=== PATIENT | male | born 1965 | race African-American/Black ===

== ENCOUNTER 2019-10-10 08:14 | Emergency (ER) | payer OTHER ==
[~2019-10-10] VITALS: Ht 182.9 cm; Wt 117.9 kg
[~2019-10-10 08:14] MED LIST changes: -LIDOCAINE 1%/EPI 1:100,000 20 ML VIAL. INJ ONE
--- NOTE | 2019-10-10 09:03 | EKG ---
[facility] [address] [place] [address] Test Date: 2019-10-10 Test Time: 08:29:34 Pat Name: BRENT TELLEZ Department: Room: Gender: M Senior Interaction Designer: : 1965 Requested By: STEFANIE HUDDLESTON Order Number: [id number] Reading MD: Measurements Intervals [place] Rate: 97 P: 61 WV: 120 QRS: 10 QRSD: 112 T: 24 QT: 360 QTc: 461 Interpretive Statements SINUS RHYTHM VENTRICULAR PREMATURE COMPLEX(ES), BIGEMINY ATRIAL PREMATURE COMPLEX(ES) ABNORMAL ECG No previous ECG available for comparison
[2019-10-10 09:17] LABS: BARBITURATES NEG (NEG); BENZODIAZEPINES NEG (NEG); CANNABINOIDS NEG (NEG); COCAINE NEG (NEG); METHADONE NEG (NEG); OPIATES NEG (NEG); PHENCYCLIDINE NEG (NEG)
[2019-10-10 09:18] LABS: AMPHETAMINE/METHAMPHETAMINE NEG (NEG)
--- NOTE | 2019-10-10 09:18 | RAD ---
Examination: PORTABLE CHEST 1V History: Dizziness Comparison/Correlation: None Findings: Portable upright frontal view of the chest was obtained. Heart size and pulmonary vasculature are normal. Calcified granulomas involve the lower lung perales in particular. No dense consolidation. Subtle right upper lung field infiltrate or scarring is questioned but this may be artifactual due to overlying anatomic structures. No evidence of pleural effusion or pneumothorax. Bony structures are unremarkable. Impression: No definite infiltrate. Follow-up two-view chest x-ray exam for more definitive assessment should be considered. Electronically signed by: Chet Matthews MD (10/10/2019 9:15 AM) [facility]
[2019-10-10 09:30] LABS: BASO # 0.1 x10^3/uL (0.0-0.2); BASO % 1 % (0-3); EOS # 0.2 x10^3/uL (0.0-0.7); EOS % 2 % (0-3); HEMATOCRIT 47.3 % (39.0-53.0); HEMOGLOBIN 16.2 g/dL (13.0-17.5); LYMPH # 2.6 x10^3/uL (1.0-4.8); LYMPH % 34 % (24-48); MEAN CORPUSCULAR HEMOGLOBIN 29 pg (25-35); MEAN CORPUSCULAR HGB CONC 34 g/dL (31-37); MEAN CORPUSCULAR VOLUME 86 fL (79-100); MONO # 0.5 x10^3/uL (0.0-1.1); MONO % 7 % (0-9); NEUT # 4.2 x10^3/uL (1.8-7.7); NEUT % 56 % (31-73); PLATELET COUNT 332 x10^3/uL (140-400); RED CELL DISTRIBUTION WIDTH 15.2 % (11.5-14.5); WHITE BLOOD COUNT 7.5 x10^3/uL (4.0-11.0)
--- NOTE | 2019-10-10 09:38 | RAD ---
CT HEAD WITHOUT CONTRAST 10/10/2019 8:51 AM Indication: Dizziness Comparison: MRI of the brain March 04, 2016 Procedure: Multidetector CT imaging of the head was performed without the administration of contrast. Findings: No evidence of acute intracranial hemorrhage is identified. Calcification along the falx is similar to comparison study. No acute mass effect or midline shift is identified. No CT evidence of subacute territorial infarct is identified. Note that CT is limited for evaluation acute ischemia. Consider MRI there is continued clinical concern for acute ischemia. Mildly prominent extra-axial fluid in the frontal regions is similar to comparison study. No new, abnormal extra-axial fluid collections are identified. Ventricles and basilar cisterns have a unremarkable configuration. Bony calvarium is intact. Impression: No evidence of acute intracranial abnormality or acute change from prior study CT DOSING PQRS STATEMENT: One or more of the following individualized dose reduction techniques were utilized for this examination: 1. Automated exposure control 2. Adjustment of the mA and/or kV according to patient size 3. Use of iterative reconstruction technique Electronically signed by: Ha Howard MD (10/10/2019 9:35 AM) [facility]
[2019-10-10 09:39] LABS: CALCIUM 9.6 mg/dL (8.5-10.1); CREATININE 0.8 mg/dL (0.7-1.3); GFR 122.8; POTASSIUM 4.1 mmol/L (3.5-5.1)
[2019-10-10 09:44] LABS: ALBUMIN 4.1 g/dL (3.4-5.0); TOTAL BILIRUBIN 0.2 mg/dL (0.2-1.0); TOTAL PROTEIN 8.2 g/dL (6.4-8.2)
[2019-10-10 11:04] VITALS: BP 163/96
--- NOTE | 2019-10-10 11:11 | PHYS DOC ---
Past Medical History Past Medical History: No Pertinent History Past Surgical History: Other Additional Past Surgical Histo: PELVIC, HEMMORRHOID Alcohol Use: Occasionally Drug Use: None Adult General Chief Complaint Chief Complaint: DIZZY/LIGHT HEADED [facility] HPI Patient is a 54 year old male who presents with complaining of dizziness. Patient states he has had episodes of dizziness for the last 2 or 3 months that usually happens with change of position and standing up and lasts for a few seconds. Patient states he was seen by his primary care physician and treated with medications that helping for his dizziness. Patient states he had a scheduled outpatient surgery for right arm lipoma resection and did not take his medication and felt dizzy at his arrival to the hospital. Outpatient surgery reported that patient had heart rate of 50 and sent patient for evaluation to ER. Patient denies chest pain, headache, palpitation, dizziness nausea and vomiting, change of hearing, focal neuro deficit, urinary symptom. Review of Systems Review of Systems Constitutional: Denies fever or chills [] Eyes: Denies change in visual acuity, redness, or eye pain [] HENT: Denies nasal congestion or sore throat [] Respiratory: Denies cough or shortness of breath [] Cardiovascular: No additional information not addressed in HPI [] GI: Denies abdominal pain, nausea, vomiting, bloody stools or diarrhea [] : Denies dysuria or hematuria [] Musculoskeletal: Denies back pain or joint pain [] Integument: Denies rash, reports skin lesions [] Neurologic: Denies headache, focal weakness or sensory changes, reports dizziness[] Endocrine: Denies polyuria or polydipsia [] All other systems were reviewed and found to be within normal limits, except as documented in this note. Allergies Allergies Allergies Coded Allergies Type Severity Reaction Last Updated Verified No Known Drug Allergies 10/10/19 No Physical Exam Physical Exam Constitutional: Well developed, well nourished, no acute distress, non-toxic appearance. [] HENT: Normocephalic, atraumatic, bilateral external ears normal, oropharynx moist, no oral exudates, nose normal. [] Eyes: PERRLA, EOMI, conjunctiva normal, no discharge. [] Neck: Normal range of motion, no tenderness, supple, no stridor. [] Cardiovascular:Heart rate regular rhythm, no murmur [] Lungs & Thorax: Bilateral breath sounds clear to auscultation [] Abdomen: Bowel sounds normal, soft, no tenderness, no masses, no pulsatile masses. [] Skin: Warm, dry, no erythema, no rash. [] Back: No tenderness, no CVA tenderness. [] Extremities: No tenderness, no cyanosis, no clubbing, ROM intact, no edema. [] Neurologic: Alert and oriented X 3, normal motor function, normal sensory function, no focal deficits noted. [] Psychologic: Affect normal, judgement normal, mood normal. [] Current Patient Data Vital Signs Vital Signs Date Time Temp Pulse Resp B/P (MAP) Pulse Ox O2 Delivery O2 Flow Rate FiO2 10/10/19 11:04 90 97 10/10/19 10:33 17 10/10/19 09:03 97.7 174/86 (115) Room Air 97.7 Lab Values Laboratory Tests Test 10/10/19 08:25 10/10/19 09:16 Urine Opiates Screen Neg (NEG) Urine Methadone Screen Neg (NEG) Urine Barbiturates Neg (NEG) Urine Phencyclidine Screen Neg (NEG) Urine Amphetamine/Methamphetamine Neg (NEG) Urine Benzodiazepines Screen Neg (NEG) Urine Cocaine Screen Neg (NEG) Urine Cannabinoids Screen Neg (NEG) Urine Ethyl Alcohol Neg (NEG) White Blood Count 7.5 x10^3/uL (4.0-11.0) Red Blood Count 5.50 x10^6/uL (4.30-5.70) Hemoglobin 16.2 g/dL (13.0-17.5) Hematocrit 47.3 % (39.0-53.0) Mean Corpuscular Volume 86 fL (79-100) Mean Corpuscular Hemoglobin 29 pg (25-35) Mean Corpuscular Hemoglobin Concent 34 g/dL (31-37) Red Cell Distribution Width 15.2 % (11.5-14.5) H Platelet Count 332 x10^3/uL (140-400) Neutrophils (%) (Auto) 56 % (31-73) Lymphocytes (%) (Auto) 34 % (24-48) Monocytes (%) (Auto) 7 % (0-9) Eosinophils (%) (Auto) 2 % (0-3) Basophils (%) (Auto) 1 % (0-3) Neutrophils # (Auto) 4.2 x10^3/uL (1.8-7.7) Lymphocytes # (Auto) 2.6 x10^3/uL (1.0-4.8) Monocytes # (Auto) 0.5 x10^3/uL (0.0-1.1) Eosinophils # (Auto) 0.2 x10^3/uL (0.0-0.7) Basophils # (Auto) 0.1 x10^3/uL (0.0-0.2) Sodium Level 141 mmol/L (136-145) Potassium Level 4.1 mmol/L (3.5-5.1) Chloride Level 103 mmol/L (98-107) Carbon Dioxide Level 26 mmol/L (21-32) Anion Gap 12 (6-14) Blood Urea Nitrogen 9 mg/dL (8-26) Creatinine 0.8 mg/dL (0.7-1.3) Estimated GFR (Cockcroft-Gault) 122.8 BUN/Creatinine Ratio 11 (6-20) Glucose Level 103 mg/dL (70-99) H Calcium Level 9.6 mg/dL (8.5-10.1) Magnesium Level 2.0 mg/dL (1.8-2.4) Total Bilirubin 0.2 mg/dL (0.2-1.0) Aspartate Amino Transferase (AST) 25 U/L (15-37) Alanine Aminotransferase (ALT) 36 U/L (16-63) Alkaline Phosphatase 80 U/L (46-116) Troponin I Quantitative < 0.017 ng/mL (0.000-0.055) Total Protein 8.2 g/dL (6.4-8.2) Albumin 4.1 g/dL (3.4-5.0) Albumin/Globulin Ratio 1.0 (1.0-1.7) Laboratory Tests 10/10/19 09:16 Laboratory Tests 10/10/19 09:16 EKG EKG EKG interpreted by me. EKG at 0 829 showed normal sinus rhythm at rate of 97, PVCs, PACs, no acute ST and T-wave elevation. Radiology/Procedures Radiology/Procedures [][facility] [address] [place], [place] [id number] IMAGING REPORT Signed PATIENT: BRENT TELLEZ ACCOUNT: [id number] : 1965 LOCATION: ER AGE: 54 SEX: M EXAM STATUS: REG ER ORD. PHYSICIAN: STEFANIE HUDDLESTON MD REASON: dizziness PROCEDURE: PORTABLE CHEST 1V Examination: PORTABLE CHEST 1V History: Dizziness Comparison/Correlation: None Findings: Portable upright frontal view of the chest was obtained. Heart size and pulmonary vasculature are normal. Calcified granulomas involve the lower lung perales in particular. No dense consolidation. Subtle right upper lung field infiltrate or scarring is questioned but this may be artifactual due to overlying anatomic structures. No evidence of pleural effusion or pneumothorax. Bony structures are unremarkable. Impression: No definite infiltrate. Follow-up two-view chest x-ray exam for more definitive assessment should be considered. Electronically signed by: Chet Ernst MD (10/10/2019 9:15 AM) [facility] DICTATED and SIGNED BY: CHET ERNST MD DATE: 10/10/19 0915 [facility] [address] [place] [address] IMAGING REPORT Signed PATIENT: BRENT TELLEZ ACCOUNT: [id number] : 1965 LOCATION: ER AGE: 54 SEX: M EXAM STATUS: REG ER ORD. PHYSICIAN: STEFANIE HUDDLESTON MD REASON: dizziness PROCEDURE: CT HEAD WO CONTRAST CT HEAD WITHOUT CONTRAST 10/10/2019 8:51 AM Indication: Dizziness Comparison: MRI of the brain March 04, 2016 Procedure: Multidetector CT imaging of the head was performed without the administration of contrast. Findings: No evidence of acute intracranial hemorrhage is identified. Calcification along the falx is similar to comparison study. No acute mass effect or midline shift is identified. No CT evidence of subacute territorial infarct is identified. Note that CT is limited for evaluation acute ischemia. Consider MRI there is continued clinical concern for acute ischemia. Mildly prominent extra-axial fluid in the frontal regions is similar to comparison study. No new, abnormal extra-axial fluid collections are identified. Ventricles and basilar cisterns have a unremarkable configuration. Bony calvarium is intact. Impression: No evidence of acute intracranial abnormality or acute change from prior study CT DOSING PQRS STATEMENT: One or more of the following individualized dose reduction techniques were utilized for this examination: 1. Automated exposure control 2. Adjustment of the mA and/or kV according to patient size 3. Use of iterative reconstruction technique Electronically signed by: Ha Boss MD (10/10/2019 9:35 AM) [facility] DICTATED and SIGNED BY: HA BOSS MD DATE: 10/10/19 0935 Course & Med Decision Making Course & Med Decision Making Pertinent Labs and Imaging studies reviewed. (See chart for details) Evaluation of patient in ER showed 54-year-old male patient sent from outpatient surgery for chronic dizziness and heart rate of 50. Patient had heart rate of 90s with PVCs. Patient had unremarkable physical exam, labs, CT head, chest x- ray and EKG. Patient was advised to continue his medication and follow up with his surgeon and primary care physician. I've spoken with the patient and/or caregivers. I've explained the patient's condition, diagnosis and treatment plan based on information available to me at this time. I've answered the patient's and/or caregivers questions and addressed any concerns. The patient and/or caregivers have a good understanding the patient's diagnosis, condition and treatment plan as can be expected at this point. Vital signs have been stabilized. The patient's condition is stable for discharge from the emergency department. The patient will pursue further outpatient evaluation with her primary care provider or other designated consulting physician as outlined in the discharge instructions. Patient and/or caregivers are agreeable to this plan of care and follow-up instructions have been explained in detail. The patient and/or caregivers have received these instructions in written format and expressed understanding of these discharge instructions. The patient and her caregivers are aware that if any significant change in condition or worsening of symptoms should prompt him to immediately return to this of the closest emergency department. If an emergent department is not readily available I would encourage him to call 911. Marybeth Disclaimer Dragon Disclaimer This electronic medical record was generated, in whole or in part, using a voice recognition dictation system. Departure Departure Impression: Primary Impression: Benign positional vertigo Additional Impressions: PVC (premature ventricular contraction) Accelerated hypertension Disposition: HOME, SELF-CARE (at 1109) Condition: STABLE Referrals: KORI SALGADO MD (PCP) Patient Instructions: Benign Positional Vertigo, Cardiac Arrhythmia Additional Instructions: Drink plenty of liquids Follow-up with your primary care physician as a scheduled tomorrow Return to ER if not getting better Problem Qualifiers Primary Impression: Benign positional vertigo Laterality: unspecified laterality Qualified Codes: H81.10 - Benign paroxysmal vertigo, unspecified ear STEFANIE HUDDLESTON MD Oct 10, 2019 11:11
== END 2019-10-10 11:39 | disposition home or self-care (01) ==
LOC: ER 08:14
DX: H81.10 Benign paroxysmal vertigo, unspecified ear (principal); I49.3 Ventricular premature depolarization; I10 Essential (primary) hypertension
CPT/HCPCS: 36415; 70450; 71045; 80053; 80307; 83735; 84484; 85025; 93005; 99285

== ENCOUNTER → 2019-10-10 | Day surgery (SDC) | payer OTHER ==
[~2019-10-10] MED LIST: FLUT9.9S NS; IBUP-1027 PO; LIDOCAINE 1%/EPI 1:100,000 20 ML VIAL. INJ ONE
[2019-10-10 08:00] VITALS: BP 183/108
== END ==
LOC: SURG 07:30
PROVIDERS: ATTEND Surgery
DX: Z53.09 Procedure and treatment not carried out because of other contraindication (principal)

== ENCOUNTER → 2019-10-23 | Day surgery (SDC) | payer OTHER ==
[~2019-10-23] MED LIST changes: +LIDOCAINE 1%/EPI 1:100,000 20 ML VIAL. INJ ONE
[2019-10-23 08:37] VITALS: BP 154/86
--- NOTE | 2019-10-23 09:33 | DISCH ---
DISCHARGE INSTRUCTIONS Condition on Discharge Condition on Discharge: Stable Activity After Discharge Activity Instructions for Disc: Activity as tolerated, Avoid exertion Lifting Instructions after Dis: No heavy lifting Diet after Discharge Diet after Discharge: Regular Wound Incision Care Wound/Incision Care: Ice to area for comfort Follow-Up Follow up with: Prince two weeks TALI ROLLINS MD Oct 23, 2019 09:33
--- NOTE | 2019-10-23 09:37 | PDOC ---
BRIEF OPERATIVE NOTE Date: Oct 23, 2019 Pre-Op Diagnosis sebaceous cyst, RUE Post-Op Diagnosis same Procedure Performed excision Surgeon Prince Anesthesia Type: Local Blood Loss <5cc Specimens Obtained skin and subcutaneous tissue RUE, 4x2x2 cm Findings sebaceous cyst Complications none Operative Note Wk # [id number] TALI ROLLINS MD Oct 23, 2019 09:36
--- NOTE | 2019-10-23 09:46 | OP ---
DATE OF SURGERY: 10/23/2019 PREOPERATIVE DIAGNOSIS: Sebaceous cyst, chronic right upper extremity. POSTOPERATIVE DIAGNOSIS: Sebaceous cyst, chronic right upper extremity. PROCEDURE: Excision. SURGEON: Tali Rollins MD ANESTHESIA: Local. ESTIMATED BLOOD LOSS: Less than 5 mL. SPECIMEN: Skin and subcutaneous tissue, right upper extremity 4 x 2 x 2 cm. DESCRIPTION OF PROCEDURE: After informed consent and timeout, the right upper extremity was prepped and draped in usual sterile fashion. 1% lidocaine with epinephrine was infiltrated in an elliptical fashion around the palpable change. Skin incised and the skin and underlying process removed intact. Hemostasis with cautery. Wound closed with interrupted inverted 3-0 Vicryl in the subcutaneous tissue and subcuticular 4-0 Monocryl with Steri-Strips in the skin. Sterile dressing applied. The patient was released having tolerated the procedure well. TALI ROLLINS MD DR: SONIA/nts JOB#: [id number] / [id number]
--- NOTE | 2019-10-25 18:06 | PATHOLOGY ---
[facility] Accession Number: [id number] . 01 Material submitted: . body - SKIN AND SUBCUTANEOUS TISSUE RIGHT UPPER EXTREMITY. Modifiers: right, upper . 01 Clinical history: . None provided. . 02 Diagnosis: Skin and subcutaneous tissue, right upper extremity mass excision: - Epidermal inclusion cyst, ruptured, with acute and chronic inflammation and focal foreign body giant cell reaction. (JPM:fence rider; 10/25/2019) [facility] 10/25/2019 1322 Local . 02 Comment: There is no evidence of malignancy. (JPM:fence rider; 10/25/2019) . 02 Electronically signed: . Salvatore Weems MD, Pathologist NPI- [id number] . 01 Gross description: . Received in formalin labeled "Palmer Boyce, skin and subcutaneous tissue right upper extremity" is an unoriented irregular excision of dark brown skin and underlying soft tissue measuring entirely 4.8 x 2.7 x 2.1 cm. The skin measures 4.5 x 1.7 x 0.5 cm. The external surface is inked black. The specimen is sectioned to reveal a cyst containing carter-red hemorrhagic material measuring 3.8 cm in greatest dimension. Mineral Surveyor tissue is submitted in cassette A1. ([facility]; 10/24/2019) SY/[facility] 10/25/2019 1316 Local . 02 Pathologist provided ICD-10: L72.0 . 02 CPT . 192247 Specimen Comment: A courtesy copy of this report has been sent to [phone], [phone] Specimen Comment: [id number] Specimen Comment: Report sent to / DR SALGADO Specimen Comment: Report sent to Performed at: [address] [place] [address] [address], [place], [place] [id number] MD Remington Beasley MD Phone: [phone] Performed at: [address] [id number] MD Salvatore Weems MD Phone: [phone]
== END | disposition home or self-care (01) ==
LOC: SURG 07:57
PROVIDERS: ATTEND Surgery
DX: L72.3 Sebaceous cyst (principal); E78.00 Pure hypercholesterolemia, unspecified; K21.9 Gastro-esophageal reflux disease without esophagitis; F17.210 Nicotine dependence, cigarettes, uncomplicated; Z72.89 Other problems related to lifestyle
CPT/HCPCS: 11424; 88304; J3490

== ENCOUNTER → 2019-12-16 | Outpatient (CLI) | payer OTHER ==
[2019-10-23 08:37] VITALS: BP 154/86
[~2019-12-16] MED LIST changes: -LIDOCAINE 1%/EPI 1:100,000 20 ML VIAL. INJ ONE
--- NOTE | 2019-12-16 09:37 | KCIC ---
Thyroid ultrasound 12/16/2019 CLINICAL HISTORY: Enlarged thyroid gland. TECHNIQUE: A real-time ultrasound examination of the thyroid gland was performed. Multiple images were obtained. FINDINGS: The thyroid gland is enlarged. The right lobe of the thyroid gland measures 7.2 x 3.6 x 3.8 cm in longitudinal, transverse, and AP dimensions. The left lobe of the thyroid gland measures 6.0 x 5.0 x 3.2 cm in size. The isthmus measures 1.3 cm in thickness. Multiple complex and heterogeneous nodules are seen scattered throughout both lobes of the thyroid gland. These measure 6 mm to 3.2 cm in greatest diameter. The largest nodule is located within the superior/mid aspect of the left lobe of thyroid gland.. These findings are consistent with a multinodular goiter. IMPRESSION: Multinodular goiter. Electronically signed by: Nomi Yates MD (12/16/2019 9:34 AM) [facility]
== END | disposition home or self-care (01) ==
LOC: KCIC US 07:42
PROVIDERS: ATTEND Family Medicine
DX: E04.2 Nontoxic multinodular goiter (principal)
CPT/HCPCS: 76536